=== PATIENT | male | born 1960 | race Two or more races ===

== ENCOUNTER 2024-03-11 16:14 | Inpatient (IN) | payer MEDICARE, OTHER ==
[~2024-03-11] VITALS: Ht 172.7 cm; Wt 97.1 kg
[2024-03-11 16:49] LABS: BASOPHILS % (AUTO) 0.4 % (0.0-2.0); EOSINOPHILS # (AUTO) 0.8 K/uL (0.0-0.7); EOSINOPHILS % (AUTO) 10.2 % (0.0-6.0); HEMATOCRIT 42 % (39-51); HEMOGLOBIN 14.6 g/dL (13.5-17.5); LYMPHOCYTES # (AUTO) 2.2 K/uL (0.8-4.8); MEAN CORPUSCULAR HEMOGLOBIN 31 PG (26.0-33.0); MEAN CORPUSCULAR HGB CONC 35 g/dl (31.0-36.0); MEAN CORPUSCULAR VOLUME 91 fL (80-96); MONOCYTES # (AUTO) 0.6 K/uL (0.1-1.30); MONOCYTES % (AUTO) 7.1 % (2.0-12.0); NEUTROPHILS # (AUTO) 4.5 K/uL (1.8-8.9); NEUTROPHILS % (AUTO) 55.3 % (43.0-81.0); PLATELET COUNT (AUTO) 162 K/uL (150-450); RED BLOOD CELL COUNT(AUTO) 4.67 MIL/uL (4.5-6.0); RED CELL DISTRIBUTION WIDTH 13.8 % (11.5-15.0); WHITE BLOOD COUNT (AUTO) 8.2 K/uL (4.3-11.0)
[2024-03-11] MEDS ORDERED: RIVA10TA PO (16:58)
[2024-03-11] MEDS ORDERED: MELA5TAB PO (16:58)
[2024-03-11] MEDS ORDERED: SENN8.6T19 PO (16:58)
[2024-03-11] MEDS ORDERED: DOCU250C14 PO (16:58)
[2024-03-11] MEDS ORDERED: MAGN400O6 PO (16:58)
[2024-03-11] MEDS ORDERED: FOLI0.4T6 PO (16:58)
[2024-03-11] MEDS ORDERED: TRIA80CR12 TP (16:58)
[2024-03-11] MEDS ORDERED: MULT-225 PO (16:58)
[2024-03-11] MEDS ORDERED: DIVA-76 PO (16:58)
[2024-03-11] MEDS ORDERED: GEMF600T90 PO (16:58)
[2024-03-11] MEDS ORDERED: BACL10TA PO (16:58)
[2024-03-11] MEDS ORDERED: CLON0.5T PO (16:58)
[2024-03-11] MEDS ORDERED: OMEG-167 PO (16:58)
[2024-03-11] MEDS ORDERED: GABA300C PO (16:58)
[2024-03-11] MEDS ORDERED: MEMA10TA PO (16:58)
[2024-03-11] MEDS ORDERED: CHOL200026 PO (16:58)
[2024-03-11] MEDS ORDERED: QUET100T PO (16:58)
[2024-03-11] MEDS ORDERED: LORA10TA7 PO (16:58)
[2024-03-11] MEDS ORDERED: ATOR10TA PO (16:58)
[2024-03-11] MEDS ORDERED: QUET50TA PO (16:58)
[2024-03-11] MEDS ORDERED: ACET-868 PO (16:58)
[2024-03-11 17:04] LABS: CALCIUM, SERUM 9.6 mg/dL (8.5-10.1); CARBON DIOXIDE 33 mmol/L (21-32); CHLORIDE 106 mmol/L (98-107); GLUCOSE 91 mg/dL (74-106); POTASSIUM 3.9 mmol/L (3.5-5.1); SODIUM SERUM 142 mmol/L (136-145); UREA NITROGEN, BLOOD 15 mg/dL (7-18)
[2024-03-11 17:09] LABS: ALANINE AMINOTRANSFERASE 22 U/L (12-78); ALBUMIN 4.1 g/dL (3.4-5.0); ALCOHOL, BLOOD < 3 mg/dL (0-10); ALKALINE PHOSPHATASE 76 U/L (46-116); ASPARTATE AMINOTRANSFERASE 21 U/L (15-37); BILIRUBIN,DIRECT 0.2 mg/dL (0.0-0.2); BILIRUBIN,TOTAL 0.7 mg/dL (0.2-1.0); TOTAL PROTEIN, SERUM 7.9 g/dL (6.4-8.2)
[2024-03-11 17:10] LABS: APPEARANCE,URINE CLEAR (CLEAR); BILIRUBIN,URINE NEGATIVE (NEGATIVE); BLOOD, URINE 3+ Ery/uL (NEGATIVE); COLOR,URINE YELLOW (YELLOW); KETONES,URINE NEGATIVE (NEGATIVE); LEUKOCYTE ESTERASE ,URINE NEGATIVE (NEGATIVE); NITRITE, URINE NEGATIVE (NEGATIVE); PROTEIN,URINE NEGATIVE (NEGATIVE); UGLUCOSE NEGATIVE (NEGATIVE); UROBILINOGEN,URINE 0.2 EU/dL (0.2)
[2024-03-11 17:14] LABS: ACETAMINOPHEN 0 ug/ml (10-30); SALICYLATE 0.3 mg/dL (2.8-20.0)
[2024-03-11 17:23] LABS: ADD URINE CULTURE NO; BACTERIA,URINE Rare /HPF (None Seen); MUCUS,URINE Rare /LPF (None Seen); SQUAMOUS EPITHELIAL CELL,UR Rare /HPF (None Seen); WBC,URINE 0-2 /HPF (0-3)
[2024-03-11 17:24] LABS: RBC,URINE 81-100 /HPF (0-2)
[2024-03-11 17:30] LABS: AMPHETAMINE, URINE NEGATIVE (NEGATIVE); BARBITURATE, URINE NEGATIVE (NEGATIVE); BENZODIAZEPINE, URINE NEGATIVE (NEGATIVE); CANNABINOID, URINE NEGATIVE (NEGATIVE); COCCAINE, URINE NEGATIVE (NEGATIVE); OPIATE, URINE NEGATIVE (NEGATIVE); PHENCYCLIDINE SCREEN,URINE NEGATIVE (NEGATIVE)
[2024-03-11] MEDS: BLOOD SUGAR DIAGNOSTIC 1 EACH STRIP IN ONE (21:52)
[2024-03-11] MEDS ORDERED: MAG HYDROX/AL HYDROX/SIMETH 30 ML UDC PO PRN (22:00)
[2024-03-11] MEDS ORDERED: MAGNESIUM HYDROXIDE 30 ML UDC PO PRN (22:00)
[2024-03-11 23:04] VITALS: BP 120/77; TEMP 98.1; O2SAT 98
[2024-03-11] MEDS: TEMAZEPAM 7.5 MG CAPSULE PO PRN (23:30)
[2024-03-12] MEDS ORDERED: PERMETHRIN 5% CRM 60 GM TUBE TP ONE (01:31)
[2024-03-12] MEDS: PERMETHRIN 5% CRM 60 GM TUBE TP ONE (01:48)
[2024-03-12] MEDS: ACETAMINOPHEN 325 MG TABLET PO PRN (01:59)
[2024-03-12] MEDS: LORAZEPAM 0.5 MG TABLET PO PRN (01:59)
[2024-03-12 08:00] VITALS: BP 150/83; TEMP 98.7; O2SAT 100
[2024-03-12 08:22] LABS: CHOLESTEROL 113 mg/dL (<200); HDL CHOLESTEROL 52 mg/dL (40-60); LDL 57 mg/dL (0-99); TRIGLYCERIDES 60 mg/dL (30-150)
[2024-03-12] MEDS: FOLIC ACID 1 MG TABLET PO SCH (08:28)
[2024-03-12] MEDS: DOCUSATE SODIUM 250 MG CAPSULE PO SCH (08:28)
[2024-03-12] MEDS: SENNOSIDES 8.6 MG TABLET PO SCH (08:28)
[2024-03-12] MEDS: MEMANTINE HCL 5 MG TABLET PO SCH (08:29)
[2024-03-12] MEDS: MULTIVITAMINS,THERAGRAN 1 UDTAB TABLET PO SCH (08:29)
[2024-03-12] MEDS: GABAPENTIN 300 MG CAPSULE PO SCH (08:29)
[2024-03-12] MEDS: CHOLECALCIFEROL 1,000 UNIT TABLET (VIT D3) PO SCH (08:29)
[2024-03-12] MEDS: LORATADINE 10 MG TABLET PO SCH (08:29)
[2024-03-12 08:33] LABS: CALCIUM, SERUM 8.5 mg/dL (8.5-10.1); POTASSIUM 3.8 mmol/L (3.5-5.1)
[2024-03-12 08:34] LABS: ALBUMIN 3.5 g/dL (3.4-5.0); BILIRUBIN,TOTAL 0.8 mg/dL (0.2-1.0)
[2024-03-12] MEDS: GEMFIBROZIL 600 MG TABLET PO SCH (08:44)
[2024-03-12 16:00] VITALS: BP 115/71; TEMP 98.7; O2SAT 97
[2024-03-12] MEDS: BACLOFEN (10 MG) 10 MG TABLET PO SCH (17:07)
[2024-03-12] MEDS: RIVAROXABAN 10 MG TABLET PO SCH (17:07)
[2024-03-12] MEDS: DIVALPROEX SODIUM 250 MG TABLET.DR PO SCH (17:33)
[2024-03-12 20:00] VITALS: BP 118/74; TEMP 98.4; O2SAT 98
[2024-03-12] MEDS: QUETIAPINE FUMARATE 100 MG TABLET PO SCH (22:03)
[2024-03-13 08:00] VITALS: BP 126/82; TEMP 98; O2SAT 97
[2024-03-13] MEDS: QUETIAPINE FUMARATE 25 MG TABLET PO SCH (08:44)
[2024-03-13] MEDS ORDERED: QUETIAPINE FUMARATE 25 MG TABLET PO SCH (09:00)
[2024-03-13 20:18] VITALS: BP 125/80; TEMP 98.2; O2SAT 96
[2024-03-14] MEDS: TEMAZEPAM 7.5 MG CAPSULE PO PRN (02:11)
[2024-03-14 08:00] VITALS: BP 130/80; TEMP 97.9; O2SAT 98
[2024-03-14 16:00] VITALS: BP 111/62; TEMP 98.9; O2SAT 96
[2024-03-14 20:00] VITALS: BP 112/62; TEMP 98.1; O2SAT 99
[2024-03-14] MEDS: QUETIAPINE FUMARATE 100 MG TABLET PO SCH (21:21)
[2024-03-15 08:00] VITALS: BP 116/79; TEMP 98.2; O2SAT 95
[2024-03-15] MEDS: DIVALPROEX SODIUM 250 MG TABLET.DR PO SCH (08:35)
[2024-03-15 16:00] VITALS: BP 119/69; TEMP 97.9; O2SAT 98
[2024-03-15 20:20] VITALS: BP 110/68; TEMP 98.3; O2SAT 98
[2024-03-16 08:00] VITALS: BP 149/82; TEMP 97.7; O2SAT 98
[2024-03-16 16:00] VITALS: BP 110/69; TEMP 98; O2SAT 98
[2024-03-16 22:48] VITALS: BP 111/71; TEMP 97.9; O2SAT 100
[2024-03-17 01:19] VITALS: BP 111/71; TEMP 97.9; O2SAT 100
[2024-03-17 08:00] VITALS: BP 130/85; TEMP 97.9; O2SAT 98
[2024-03-17] MEDS: PERMETHRIN 5% CRM 60 GM TUBE TP ONE (14:43)
[2024-03-17 16:00] VITALS: BP 117/85; TEMP 98.7; O2SAT 98
[2024-03-17 20:00] VITALS: BP 123/68; TEMP 98.4; O2SAT 98
[2024-03-17] MEDS: diphenhydrAMINE HCL 25 MG CAPSULE PO PRN (23:26)
[2024-03-18 08:00] VITALS: BP 136/74; TEMP 97.7; O2SAT 100
[2024-03-18] MEDS: QUETIAPINE FUMARATE 25 MG TABLET PO SCH (12:16)
[2024-03-18] MEDS: DIVALPROEX SODIUM 250 MG TABLET.DR PO SCH (13:43)
[2024-03-18 16:00] VITALS: BP 127/74; TEMP 97.5; O2SAT 97
[2024-03-18] MEDS ORDERED: DIVALPROEX SODIUM 500 MG TABLET.DR PO SCH (21:00)
[2024-03-18] MEDS: QUETIAPINE FUMARATE 100 MG TABLET PO SCH (21:21)
[2024-03-18 21:34] VITALS: BP 123/75; TEMP 97.3; O2SAT 100
[2024-03-19 08:00] VITALS: BP 144/88; TEMP 97.9; O2SAT 98
[2024-03-19 16:00] VITALS: BP 122/75; TEMP 98.6; O2SAT 100
[2024-03-19 20:00] VITALS: BP 102/58; TEMP 97.9; O2SAT 60
[2024-03-19 20:39] VITALS: BP 102/58; TEMP 97.9; O2SAT 97
[2024-03-20 08:00] VITALS: BP 137/87; TEMP 97.9; O2SAT 98
[2024-03-20 16:00] VITALS: BP 113/68; TEMP 97.8; O2SAT 98
[2024-03-20] MEDS: DIVALPROEX SODIUM 500 MG TABLET.DR PO SCH ×2 (16:22→21:37)
[2024-03-20 21:42] VITALS: BP_SYST 121; BP_SYST 93; BP_DIAS 69; BP_DIAS 80; TEMP 97.9; TEMP 98.2; O2SAT 98
[2024-03-21 08:00] VITALS: BP 106/56; TEMP 98.6; O2SAT 98
[2024-03-21] MEDS: DIVALPROEX SODIUM 500 MG TABLET.DR PO SCH (09:42)
[2024-03-21 16:00] VITALS: BP 117/72; TEMP 98; O2SAT 98
[2024-03-21 20:44] VITALS: BP 99/51; TEMP 98.1; O2SAT 99
[2024-03-22 08:00] VITALS: BP 107/67; TEMP 97.9; O2SAT 99
[2024-03-22 16:00] VITALS: BP 122/78; TEMP 98.2; O2SAT 97
[2024-03-22 20:03] VITALS: BP 137/77; TEMP 98.3; O2SAT 97
[2024-03-22] MEDS: QUETIAPINE FUMARATE 100 MG TABLET PO SCH (21:29)
[2024-03-23 08:00] VITALS: BP 123/82; TEMP 98.6; O2SAT 98
[2024-03-23 16:00] VITALS: BP 131/76; TEMP 98.2; O2SAT 100
[2024-03-23 20:24] VITALS: BP 119/80; TEMP 98.2; O2SAT 100
[2024-03-24 08:00] VITALS: BP 105/51; TEMP 97.9; O2SAT 97
[2024-03-24 16:00] VITALS: BP 105/85; TEMP 98.7; O2SAT 99
[2024-03-24 20:00] VITALS: BP 100/47; TEMP 98.1; O2SAT 98
[2024-03-25 08:00] VITALS: BP 135/90; TEMP 98; O2SAT 98
== END 2024-03-25 14:15 | DRG 885 ==
LOC: ER 16:20 → GPS 20:15
PROVIDERS: ADMIT Psychiatry & Neurology Psychosomatic Medicine; ATTEND Nurse Practitioner Family
DX: F25.9 Schizoaffective disorder, unspecified (principal); I48.20 Chronic atrial fibrillation, unspecified; F03.94 Unspecified dementia, unspecified severity, with anxiety; F29 Unspecified psychosis not due to a substance or known physiological condition; E78.5 Hyperlipidemia, unspecified; I10 Essential (primary) hypertension; K21.9 Gastro-esophageal reflux disease without esophagitis; Z79.01 Long term (current) use of anticoagulants; Z86.73 Personal history of transient ischemic attack (TIA), and cerebral infarction without residual deficits; D63.8 Anemia in other chronic diseases classified elsewhere; E03.9 Hypothyroidism, unspecified; Z20.822 Contact with and (suspected) exposure to COVID-19; Z73.6 Limitation of activities due to disability; B86 Scabies; Z79.899 Other long term (current) drug therapy; H26.9 Unspecified cataract
CPT/HCPCS: 36415; 80048-TC; 80053-TC; 80061-TC; 80076-TC; 80164-TC; 81001; 85025-TC; 87081-TC; 97110-TC; 97116-TC; 97530-TC; A4223; G0480; Q0163